=== PATIENT | female | born 2000 | race Caucasian/White ===

== ENCOUNTER 2021-05-02 11:36 | Emergency (ER) | payer OTHER ==
[~2021-05-02 11:36] MED LIST: CLARITIN10 MG PO; IBUPROFEN800 MG PO; KEFLEX250 M1 PO; MEDROL 4MG DOSEP4 MG PO; PRENATAL FORMU1 EACH PO; ZOLOFT25 MG PO; ZPAK PO
[2021-05-02] MEDS ORDERED: PREDNISONE 20MG20 MG PO (15:59)
== END 2021-05-02 16:15 | disposition home or self-care (01) ==
LOC: FER 11:36
DX: U07.1 COVID-19 (principal); J45.909 Unspecified asthma, uncomplicated; F17.210 Nicotine dependence, cigarettes, uncomplicated
CPT/HCPCS: 71046; 87880; J8540; U0002

== ENCOUNTER 2022-05-14 20:25 | Emergency (ER) | payer OTHER ==
[~2022-05-14 20:25] MED LIST changes: +PREDNISONE 20MG20 MG PO
[2022-05-14 21:40] LABS: BASOPHIL 0.2 % (0-2); EOSINOPHIL 1.2 % (0-5); HCT 43.5 % (37.0-47.0); HGB 15.3 g/dl (12.5-16.0); LYMPHOCYTE 7.8 % (15-48); MCH 31.9 pg (25.0-31.0); MCHC 35.2 g/dL (32.0-36.0); MCV 90.6 fL (78.0-100.0); MONOCYTE 6.2 % (0-12); MPV 9.2 fL (6.0-9.5); NEUTROPHIL 84.2 % (41-80); NRBC 0; PLT 295 K/uL (150-400); RDW 10.9 % (11.5-14.0); WBC 16.5 K/uL (4.0-10.5)
[2022-05-14 21:55] LABS: BUN/CREAT RATIO (CALC) 20.5 RATIO; CREATININE 0.73 mg/dL (0.51-0.95); POTASSIUM 3.7 mmol/L (3.5-5.1)
[2022-05-14 22:11] LABS: BILIRUBIN NEGATIVE (NEGATIVE); BLOOD TRACE-INTACT Ery/uL (NEGATIVE); CLARITY CLEAR (CLEAR); COLOR YELLOW (YELLOW); GLUCOSE (U) NORMAL (NORMAL); LEUKOCYTES NEGATIVE Leu/uL (NEGATIVE); NITRITE NEGATIVE (NEGATIVE); PROTEIN NEGATIVE (NEGATIVE); SPECIFIC GRAVITY >=1.030 (1.001-1.030); UROBILINOGEN 0.2 mg/dL (0.2-1.0); pH 5.5 (5.0-9.0)
[2022-05-14 22:20] LABS: BACTERIA TRACE; URINARY RBC RARE; URINARY WBC RARE
[2022-05-14] MEDS ORDERED: ONDANSETRON ODT4 MG PO (23:39)
[2022-05-18 07:06] LABS: CHLAMYDIA TRACHOMATIS, NAA Negative (Negative); NEISSERIA GONORRHOEAE, NAA Negative (Negative)
== END 2022-05-14 23:47 | disposition home or self-care (01) ==
LOC: FER 20:25
PROVIDERS: Emergency Medicine
DX: R10.31 Right lower quadrant pain (principal); R30.0 Dysuria; Z91.040 Latex allergy status; Z91.041 Radiographic dye allergy status
CPT/HCPCS: 36415; 80048; 81001; 85025; 87210; 87491; 87591; J1885; J2405; J7030; Q9967